=== PATIENT | male | born 1950 | race Caucasian/White ===

== ENCOUNTER → 2017-12-31 | Outpatient (CLI) | payer MEDICARE ==
[2017-12-31 18:48] LABS: BASO % 0.2 % (0.0-1.0); EOS % 0.4 % (0.0-3.0); HEMATOCRIT 42.5 % (42.0-52.0); HEMOGLOBIN 13.7 g/dl (13.5-17.5); IMMATURE GRANULOCYTE % 0.4 % (0-3.0); LYMPH # 1.2 10^3/uL (1.5-4.5); LYMPH % 12.3 % (24.0-44.0); MEAN CORPUSCULAR HEMOGLOBIN 29.6 pg (27.0-33.0); MEAN CORPUSCULAR HGB CONC 32.2 g/dl (32.0-36.5); MEAN CORPUSCULAR VOLUME 91.8 fl (80.0-96.0); MONO # 0.4 10^3/uL (0.0-0.8); MONO % 3.7 % (0.0-5.0); NEUTROPHILS # 8.3 10^3/uL (1.8-7.7); PLATELET COUNT, AUTOMATED 236 10^3/uL (150-450); RED BLOOD COUNT 4.63 10^6/uL (4.30-6.10); RED CELL DISTRIBUTION WIDTH 13.2 % (11.5-14.5)
[2017-12-31 19:01] LABS: ALBUMIN 3.7 GM/DL (3.2-5.2); ALBUMIN/GLOBULIN RATIO 1.37 (1.00-1.93); ALKALINE PHOSPHATASE 121 U/L (45-117); ALT/SGPT 45 U/L (12-78); ANION GAP 9 MEQ/L (8-16); AST/SGOT 32 U/L (7-37); BLOOD UREA NITROGEN 20 MG/DL (7-18); CALCIUM LEVEL 7.9 MG/DL (8.8-10.2); CARBON DIOXIDE LEVEL 28 MEQ/L (21-32); CHLORIDE LEVEL 104 MEQ/L (98-107); CHOLESTEROL LEVEL 113 MG/DL (<200); CHOLESTEROL RISK RATIO 2.756 (<5); CREATININE FOR GFR 1.05 MG/DL (0.70-1.30); GLOMERULAR FILTRATION RATE > 60.0 (>49); GLUCOSE, FASTING 102 MG/DL (70-100); HDL CHOLESTEROL 41 MG/DL (>40); LDL CHOLESTEROL 52.4 MG/DL (<100); NON-HDL-C 72 MG/DL; POTASSIUM SERUM 4.2 MEQ/L (3.5-5.1); SODIUM LEVEL 141 MEQ/L (136-145); TOTAL PROTEIN 6.4 GM/DL (6.4-8.2); TRIGLYCERIDES LEVEL 98 MG/DL (<150)
[2017-12-31 19:07] LABS: ESTIMATED AVERAGE GLUCOSE 134 MG/DL (60-110); HEMOGLOBIN A1c 6.3 %
[2018-01-01 12:45] LABS: TOTAL 25(OH) VITAMIN D 27.7 NG/ML (30.0-100.0)
[2018-01-05 13:34] LABS: PSA TOTAL 0.7 ng/mL (Not Estab.)
== END ==
LOC: M LRY 09:21
DX: I10 Essential (primary) hypertension (principal); Z12.5 Encounter for screening for malignant neoplasm of prostate; E55.9 Vitamin D deficiency, unspecified; R73.01 Impaired fasting glucose; E78.4 Other hyperlipidemia; Z68.32 Body mass index [BMI] 32.0-32.9, adult
CPT/HCPCS: 80053

== ENCOUNTER → 2019-05-20 | Outpatient (CLI) | payer MEDICARE ==
--- NOTE | 2019-05-20 11:11 | REP ---
Clinical: Follow up abnormal lung findings. Technique: Axial noncontrast images from the thoracic inlet to the upper abdomen with coronal and sagittal re-formations. Comparison: 12/14/2018. Findings: Subtle small calcified and non-calcified pleural plaquing primarily along the anterolateral right upper lobe remains stable along with stable 5 mm noncalcified subpleural nodule along the lateral right middle lobe.. The bilateral lung patton are otherwise well aerated, relatively symmetric and clear. No further consolidation, nodule or mass. No effusion. No pneumothorax. Tracheobronchial tree is patent. No adenopathy. The mediastinum is stable and again demonstrates moderate atherosclerotic changes to the thoracic aorta and coronary arteries. No aortic aneurysm. No cardiomegaly. No pericardial effusion. Limited upper abdomen demonstrates normal bilateral adrenal glands. Surrounding osseous structures are intact. Impression: 1. Stable subtle noncalcified pleural plaque and subpleural right middle lobe nodule. Consider 12-month follow-up examination to confirm stability/chronicity. 2. No further acute mediastinal or pleuroparenchymal process appreciated. Electronically Signed by Isidoro Scott MD 05/20/2019 11:02 A
== END ==
LOC: M RAD 09:17
PROVIDERS: ATTEND Internal Medicine Pulmonary Disease
DX: R91.8 Other nonspecific abnormal finding of lung field (principal)

== ENCOUNTER → 2019-05-23 | Outpatient (REF) | payer MEDICARE | LOC: M LAB REF 15:09 | PROVIDERS: ATTEND Surgery | DX: D21.11 Benign neoplasm of connective and other soft tissue of right upper limb, including shoulder (principal) ==

== ENCOUNTER → 2019-05-28 | Outpatient (REF) | payer MEDICARE ==
[2019-05-28 13:34] LABS: BASO # 0.1 10^3/uL (0.0-0.2); BASO % 0.7 % (0.0-1.0); EOS # 0.2 10^3/uL (0.0-0.5); EOS % 2.8 % (0.0-3.0); HEMATOCRIT 42.9 % (42.0-52.0); HEMOGLOBIN 13.9 g/dl (13.5-17.5); LYMPH # 1.4 10^3/uL (1.5-5.0); LYMPH % 20.1 % (24.0-44.0); MEAN CORPUSCULAR HEMOGLOBIN 30.2 pg (27.0-33.0); MEAN CORPUSCULAR HGB CONC 32.4 g/dl (32.0-36.5); MEAN CORPUSCULAR VOLUME 93.1 fl (80.0-96.0); MONO # 0.8 10^3/uL (0.0-0.8); MONO % 10.8 % (0.0-5.0); NEUTROPHILS # 4.6 10^3/uL (1.5-8.5); NEUTROPHILS % 65.3 % (36.0-66.0); PLATELET COUNT, AUTOMATED 235 10^3/uL (150-450); RED BLOOD COUNT 4.61 10^6/uL (4.30-6.10); WHITE BLOOD COUNT 7.1 10^3/uL (4.0-10.0)
[2019-05-28 13:41] LABS: ALT/SGPT 30 U/L (12-78); BILIRUBIN,TOTAL 0.7 MG/DL (0.2-1.0); BLOOD UREA NITROGEN 20 MG/DL (7-18); CALCIUM LEVEL 8.9 MG/DL (8.8-10.2); CARBON DIOXIDE LEVEL 30 MEQ/L (21-32); CHLORIDE LEVEL 108 MEQ/L (98-107); CREATININE FOR GFR 0.95 MG/DL (0.70-1.30); GLOMERULAR FILTRATION RATE > 60.0 (>49); GLUCOSE, FASTING 98 MG/DL (70-100); POTASSIUM SERUM 3.9 MEQ/L (3.5-5.1); SODIUM LEVEL 143 MEQ/L (136-145); TOTAL PROTEIN 6.5 GM/DL (6.4-8.2)
[2019-05-28 13:49] LABS: VITAMIN B12 LEVEL > 2000 PG/ML
[2019-05-28 14:41] LABS: ERYTHROCYTE SEDIMENTATION RATE 7 mm/hr (0-20)
[2019-05-29 14:42] LABS: ANTINUCLEAR ANTIBODIES DIRECT Negative (Negative)
== END ==
LOC: M LABNEURO 13:07
PROVIDERS: ATTEND Psychiatry & Neurology Neurology
DX: R41.3 Other amnesia (principal); D51.8 Other vitamin B12 deficiency anemias

== ENCOUNTER → 2020-03-31 | Outpatient (REF) | payer MEDICARE, OTHER ==
[2020-03-31 16:53] LABS: APPEARANCE, URINE CLEAR (CLEAR); BACTERIA, URINE AUTO NEGATIVE (NEGATIVE); BILIRUBIN, URINE AUTO NEGATIVE (NEGATIVE); BLOOD, URINE BLOOD NEGATIVE (NEGATIVE); COLOR, URINE YELLOW (YELLOW); GLUCOSE, URINE (UA) AUTO NEGATIVE (NEGATIVE); KETONE, URINE AUTO NEGATIVE (NEGATIVE); LEUKOCYTE ESTERASE, URINE AUTO NEGATIVE (NEGATIVE); NITRITE, URINE AUTO NEGATIVE (NEGATIVE); PROTEIN, URINE AUTO NEGATIVE (NEGATIVE); RBC, URINE AUTO 0 /HPF (0-3); SPECIFIC GRAVITY URINE AUTO 1.012 (1.002-1.035); SQUAMOUS EPITHELIAL CELL UR AU 0 /HPF (0-6); UROBILINOGEN, URINE AUTO 0.2 mg/dL (0.0-2.0); WBC, URINE AUTO 0 /HPF (0-3)
[2020-03-31 17:09] LABS: BASO % 0.6 % (0.0-1.0); EOS # 0.1 10^3/uL (0.0-0.5); EOS % 1.6 % (0.0-3.0); HEMATOCRIT 42.2 % (42.0-52.0); HEMOGLOBIN 13.5 g/dl (13.5-17.5); LYMPH # 1.3 10^3/uL (1.5-5.0); LYMPH % 18.5 % (24.0-44.0); MEAN CORPUSCULAR HEMOGLOBIN 29.7 pg (27.0-33.0); MEAN CORPUSCULAR VOLUME 92.7 fl (80.0-96.0); MONO # 0.7 10^3/uL (0.0-0.8); MONO % 9.3 % (0.0-5.0); NEUTROPHILS # 4.9 10^3/uL (1.5-8.5); NEUTROPHILS % 69.6 % (36.0-66.0); PLATELET COUNT, AUTOMATED 205 10^3/uL (150-450); RED BLOOD COUNT 4.55 10^6/uL (4.30-6.10)
[2020-03-31 17:25] LABS: HEMOGLOBIN A1c 5.5 %
[2020-03-31 17:30] LABS: ALBUMIN 3.9 GM/DL (3.2-5.2); ALT/SGPT 28 U/L (12-78); BILIRUBIN,TOTAL 0.5 MG/DL (0.2-1.0); BLOOD UREA NITROGEN 16 MG/DL (7-18); CALCIUM LEVEL 8.6 MG/DL (8.8-10.2); CARBON DIOXIDE LEVEL 31 MEQ/L (21-32); CHLORIDE LEVEL 106 MEQ/L (98-107); CHOLESTEROL LEVEL 115 MG/DL (<200); CHOLESTEROL RISK RATIO 2.254 (<5); CREATININE FOR GFR 0.86 MG/DL (0.70-1.30); FREE T4 0.92 NG/DL (0.76-1.46); GLOMERULAR FILTRATION RATE > 60.0 (>49); GLUCOSE, FASTING 96 MG/DL (70-100); HDL CHOLESTEROL 51 MG/DL (>40); LDL CHOLESTEROL 51 MG/DL (<100); NON-HDL-C 64 MG/DL; POTASSIUM SERUM 4.4 MEQ/L (3.5-5.1); SODIUM LEVEL 141 MEQ/L (136-145); TOTAL PROTEIN 6.1 GM/DL (6.4-8.2); TRIGLYCERIDES LEVEL 64 MG/DL (<150)
[2020-03-31 17:32] LABS: TOTAL 25(OH) VITAMIN D 49.1 NG/ML (30.0-100.0)
== END ==
LOC: M LAB REF 16:17
PROVIDERS: ATTEND Nurse Practitioner Family
DX: Z00.01 Encounter for general adult medical examination with abnormal findings (principal); Z12.5 Encounter for screening for malignant neoplasm of prostate; N50.89 Other specified disorders of the male genital organs; R41.3 Other amnesia; E78.5 Hyperlipidemia, unspecified; I10 Essential (primary) hypertension; Z79.899 Other long term (current) drug therapy
CPT/HCPCS: 80053; 80061; 81001; 82306; 83036; 84439; 84443; 85025; 87086; G0103

== ENCOUNTER → 2020-04-29 | Outpatient (REF) | payer MEDICARE ==
[2020-04-29 17:40] LABS: APPEARANCE, URINE CLEAR (CLEAR); BACTERIA, URINE AUTO NEGATIVE (NEGATIVE); BILIRUBIN, URINE AUTO NEGATIVE (NEGATIVE); BLOOD, URINE BLOOD NEGATIVE (NEGATIVE); COLOR, URINE YELLOW (YELLOW); GLUCOSE, URINE (UA) AUTO NEGATIVE (NEGATIVE); KETONE, URINE AUTO NEGATIVE (NEGATIVE); LEUKOCYTE ESTERASE, URINE AUTO NEGATIVE (NEGATIVE); MUCUS, URINE SMALL (NEGATIVE); NITRITE, URINE AUTO NEGATIVE (NEGATIVE); PROTEIN, URINE AUTO NEGATIVE (NEGATIVE); RBC, URINE AUTO 1 /HPF (0-3); SPECIFIC GRAVITY URINE AUTO 1.025 (1.002-1.035); SQUAMOUS EPITHELIAL CELL UR AU 0 /HPF (0-6); UROBILINOGEN, URINE AUTO 0.2 mg/dL (0.0-2.0); WBC, URINE AUTO 0 /HPF (0-3)
== END ==
LOC: M SMT 16:41
PROVIDERS: ATTEND Urology
DX: N45.1 Epididymitis (principal)

== ENCOUNTER → 2020-05-06 | Outpatient (CLI) | payer MEDICARE ==
--- NOTE | 2020-05-06 15:37 | REP ---
INDICATION: EDIDIDYMITIS. COMPARISON: None FINDINGS: The right testicle measures 4.1 x 2.1 x 3.4 cm and the left testicle measures 4.8 x 2.2 x 3.7 cm. There are no solid testicular masses. The testicular vascular pattern is within normal limits bilaterally. The right testicular RI is 0.59 and the left is 0.60. In the right epididymal region there are multiple anechoic or nearly anechoic structures the 2 largest measure 3.5 x 3.4 x 2.5 cm and 3.5 x 2.1 x 2.4 cm. The left epididymis there are 2 anechoic structures 1 measures 1.8 x 1.1 x 1.8 cm and the other 1.8 x 1.1 x 1.4 cm. 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 IMPRESSION: Benign cystic changes as described above, however, since are no priors for comparison follow-up is recommended. There is no evidence of a solid mass or epididymal orchitis. <Electronically signed by Eleuterio Sow > 05/06/20 [id number]
== END ==
LOC: M RAD 14:26
PROVIDERS: ATTEND Urology
DX: N45.1 Epididymitis (principal)

== ENCOUNTER → 2020-05-21 | Outpatient (CLI) | payer MEDICARE ==
--- NOTE | 2020-05-21 13:25 | REP ---
INDICATION: ABN FINDINGS OF LUNG FIELD. COMPARISON: Comparison chest CT studies are from December 14, 2018 and May 20, 2019.. TECHNIQUE: Helical scanning is acquired 3 mm axial images are generated. Coronal and sagittal MPR and coronal MIP images are generated. FINDINGS: Preliminary digital manager of security radiograph is unremarkable. The thoracic aorta is somewhat tortuous and calcific. There is no evidence of pleural or pericardial effusion. No hilar or mediastinal mass or adenopathy is seen. Vascular calcifications noted along the distribution of the coronary arteries. No adrenal lesion is seen. The visualized upper abdominal structures are unremarkable. There is calcific and noncalcific pleural plaquing on the right and left unchanged. There is a pleural based stable right middle lobe nodule measuring 5 mm in diameter. There is a 2nd stable 3 mm nodule in the right middle lobe. Both of these are unchanged from the December 14, 2018 study. There is a small subpleural nodular density 3 mm in diameter in the left lower lobe also unchanged. No new pulmonary nodule or mass lesion is observed. No infiltrate is seen. Bone window settings show no bony destructive lesion. IMPRESSION: Stable calcific and noncalcific pleural plaquing. Stable pleural based nodular densities unchanged from the study done 1 year and 5 months ago. <Electronically signed by Unruly Matamoros > 05/21/20 [id number]
== END ==
LOC: M RAD 10:00
PROVIDERS: ATTEND Internal Medicine Pulmonary Disease
DX: R91.8 Other nonspecific abnormal finding of lung field (principal); I25.10 Atherosclerotic heart disease of native coronary artery without angina pectoris

== ENCOUNTER → 2020-09-18 | Outpatient (REF) | payer MEDICARE ==
[2020-09-18 13:46] LABS: ALBUMIN 4.1 GM/DL (3.2-5.2); ALT/SGPT 38 U/L (12-78); BILIRUBIN,TOTAL 0.5 MG/DL (0.2-1.0); BLOOD UREA NITROGEN 18 MG/DL (7-18); CALCIUM LEVEL 8.8 MG/DL (8.8-10.2); CARBON DIOXIDE LEVEL 34 MEQ/L (21-32); CHLORIDE LEVEL 105 MEQ/L (98-107); CHOLESTEROL LEVEL 115 MG/DL (<200); CHOLESTEROL RISK RATIO 2.674 (<5); CREATININE FOR GFR 0.86 MG/DL (0.70-1.30); GLOMERULAR FILTRATION RATE > 60.0 (>49); GLUCOSE, FASTING 92 MG/DL (70-100); HDL CHOLESTEROL 43 MG/DL (>40); LDL CHOLESTEROL 54 MG/DL (<100); NON-HDL-C 72 MG/DL; POTASSIUM SERUM 4.4 MEQ/L (3.5-5.1); SODIUM LEVEL 141 MEQ/L (136-145); TOTAL PROTEIN 6.4 GM/DL (6.4-8.2); TRIGLYCERIDES LEVEL 90 MG/DL (<150)
== END ==
LOC: M LAB REF 12:22
PROVIDERS: ATTEND Family Medicine Addiction Medicine
DX: E78.5 Hyperlipidemia, unspecified (principal)

== ENCOUNTER → 2021-01-04 | Outpatient (REF) | payer MEDICARE ==
[2021-01-04 15:43] LABS: BASO % 0.5 % (0.0-1.0); EOS # 0.2 10^3/uL (0.0-0.5); EOS % 2.3 % (0.0-3.0); HEMATOCRIT 41.2 % (42.0-52.0); HEMOGLOBIN 13.1 g/dl (13.5-17.5); LYMPH # 1.2 10^3/uL (1.5-5.0); LYMPH % 16.2 % (24.0-44.0); MEAN CORPUSCULAR HEMOGLOBIN 29.4 pg (27.0-33.0); MEAN CORPUSCULAR HGB CONC 31.8 g/dl (32.0-36.5); MEAN CORPUSCULAR VOLUME 92.6 fl (80.0-96.0); MONO # 0.8 10^3/uL (0.0-0.8); MONO % 10.5 % (2.0-8.0); NEUTROPHILS # 5.2 10^3/uL (1.5-8.5); NEUTROPHILS % 70.1 % (36.0-66.0); PLATELET COUNT, AUTOMATED 208 10^3/uL (150-450); RED BLOOD COUNT 4.45 10^6/uL (4.30-6.10); WHITE BLOOD COUNT 7.4 10^3/uL (4.0-10.0)
[2021-01-04 16:01] LABS: HEMOGLOBIN A1c 5.6 %
[2021-01-04 16:18] LABS: ALBUMIN 3.6 GM/DL (3.2-5.2); ALT/SGPT 46 U/L (12-78); BILIRUBIN,TOTAL 0.3 MG/DL (0.2-1.0); BLOOD UREA NITROGEN 19 MG/DL (7-18); CALCIUM LEVEL 8.5 MG/DL (8.8-10.2); CARBON DIOXIDE LEVEL 29 MEQ/L (21-32); CHLORIDE LEVEL 108 MEQ/L (98-107); CHOLESTEROL LEVEL 112 MG/DL (<200); CREATININE FOR GFR 0.88 MG/DL (0.70-1.30); FREE T4 0.97 NG/DL (0.76-1.46); GLOMERULAR FILTRATION RATE > 60.0 (>49); GLUCOSE, FASTING 101 MG/DL (70-100); HDL CHOLESTEROL 50 MG/DL (>40); LDL CHOLESTEROL 46 MG/DL (<100); NON-HDL-C 62 MG/DL; POTASSIUM SERUM 4.8 MEQ/L (3.5-5.1); SODIUM LEVEL 143 MEQ/L (136-145); TRIGLYCERIDES LEVEL 80 MG/DL (<150)
== END ==
LOC: M LAB REF 15:10
PROVIDERS: ATTEND Nurse Practitioner Family
DX: E66.3 Overweight (principal); I10 Essential (primary) hypertension; Z79.899 Other long term (current) drug therapy

== ENCOUNTER → 2021-06-02 | Outpatient (CLI) | payer MEDICARE ==
--- NOTE | 2021-06-02 11:07 | REP ---
INDICATION: ABN FINDING OF LUNG COMPARISON: Multiple the latest 05/21/2020 also without contrast TECHNIQUE: Standard helical technique without intravenous contrast FINDINGS: The mediastinum and pulmonary makayla are stable. There is no mass or adenopathy. There are no pleural or pericardial effusions. There is no change in appearance of the imaged upper abdomen or imaged osseous structures. Evaluation of the lung patton shows biapical pleuroparenchymal scarring status quo. There are multiple stable pulmonary nodules some pleural based. There are no new or enlarging nodules. IMPRESSION: Stable CT examination of the chest. Follow-up as per the revised Fleischner society criteria. <Electronically signed by Eleuterio Sow > 06/02/21 [id number]
== END ==
LOC: M RAD 08:46
PROVIDERS: ATTEND Internal Medicine Pulmonary Disease
DX: R91.8 Other nonspecific abnormal finding of lung field (principal)

== ENCOUNTER → 2022-01-03 | Outpatient (CLI) | payer MEDICARE | LOC: M RAD 10:16 | PROVIDERS: ATTEND Nurse Practitioner Family | DX: N43.41 Spermatocele of epididymis, single (principal); N50.3 Cyst of epididymis; N44.2 Benign cyst of testis ==

== ENCOUNTER → 2022-05-31 | Outpatient (CLI) | payer MEDICARE | LOC: M WUC 09:01 | PROVIDERS: ATTEND Nurse Practitioner Family | DX: R07.9 Chest pain, unspecified (principal) ==

== ENCOUNTER → 2022-06-28 | Outpatient (REF) | payer MEDICARE ==
[2022-06-28 13:34] LABS: BASO % 0.5 % (0.0-1.0); EOS # 0.1 10^3/uL (0.0-0.5); EOS % 1.3 % (0.0-3.0); HEMATOCRIT 45.2 % (42.0-52.0); HEMOGLOBIN 14.5 g/dl (13.5-17.5); LYMPH # 1.6 10^3/uL (1.5-5.0); LYMPH % 20.8 % (24.0-44.0); MEAN CORPUSCULAR HEMOGLOBIN 29.5 pg (27.0-33.0); MEAN CORPUSCULAR HGB CONC 32.1 g/dl (32.0-36.5); MEAN CORPUSCULAR VOLUME 92.1 fl (80.0-96.0); MONO # 0.8 10^3/uL (0.0-0.8); MONO % 10.9 % (2.0-8.0); NEUTROPHILS # 4.9 10^3/uL (1.5-8.5); NEUTROPHILS % 66.1 % (36.0-66.0); PLATELET COUNT, AUTOMATED 230 10^3/uL (150-450); RED BLOOD COUNT 4.91 10^6/uL (4.30-6.10); WHITE BLOOD COUNT 7.5 10^3/uL (4.0-10.0)
[2022-06-28 14:10] LABS: THYROID STIMULATING HORMONE 2.368 uIU/ML (0.55-4.78)
[2022-06-28 14:11] LABS: ALKALINE PHOSPHATASE 87 U/L (46-116); ALT/SGPT 57 U/L (7.0-40); AST/SGOT 29 U/L (<34); BILIRUBIN,TOTAL 0.6 MG/DL (0.3-1.2); BLOOD UREA NITROGEN 24 MG/DL (9-23); CALCIUM LEVEL 8.8 MG/DL (8.3-10.6); CARBON DIOXIDE LEVEL 28 MMOL/L (20-31); CHLORIDE LEVEL 103 MMOL/L (98-107); CHOLESTEROL LEVEL 137 MG/DL (<200); CHOLESTEROL RISK RATIO 3.88 (<5); CREATININE FOR GFR 1.02 MG/DL (0.70-1.30); GLOMERULAR FILTRATION RATE > 60.0 (>42); GLUCOSE, FASTING 104 MG/DL (74-106); HDL CHOLESTEROL 35.3 MG/DL (>40); LDL CHOLESTEROL 80.3 MG/DL (<100); NON-HDL-C 102 MG/DL; POTASSIUM SERUM 4.6 MMOL/L (3.5-5.1); SODIUM LEVEL 141 MMOL/L (136-145); TOTAL PROTEIN 6.2 G/DL (5.7-8.2); TRIGLYCERIDES LEVEL 107 MG/DL (<150)
[2022-06-28 14:36] LABS: HEMOGLOBIN A1c 5.6 % (4.0-6.0)
== END ==
LOC: M LAB REF 12:27
PROVIDERS: ATTEND Nurse Practitioner Family
DX: Z13.228 Encounter for screening for other metabolic disorders (principal)

== ENCOUNTER → 2022-09-26 | Outpatient (REF) | payer MEDICARE ==
[2022-09-26 13:40] LABS: CHOLESTEROL RISK RATIO 3.04 (<5); HDL CHOLESTEROL 37.5 MG/DL (>40); LDL CHOLESTEROL 56.9 MG/DL (<100); NON-HDL-C 76.5 MG/DL
== END ==
LOC: M LAB REF 12:07
PROVIDERS: ATTEND Nurse Practitioner Family
DX: E78.5 Hyperlipidemia, unspecified (principal)

== ENCOUNTER 2022-10-21 08:14 | Emergency (ER) | payer MEDICARE ==
[~2022-10-21] VITALS: Ht 177.8 cm; Wt 95.4 kg
[2022-10-21 11:32] LABS: BASO % 0.5 % (0.0-1.0); EOS # 0.1 10^3/uL (0.0-0.5); EOS % 0.8 % (0.0-3.0); HEMATOCRIT 43.8 % (42.0-52.0); LYMPH # 1.4 10^3/uL (1.5-5.0); LYMPH % 16.2 % (24.0-44.0); MEAN CORPUSCULAR HEMOGLOBIN 28.9 pg (27.0-33.0); MEAN CORPUSCULAR VOLUME 90.5 fl (80.0-96.0); MONO # 0.8 10^3/uL (0.0-0.8); MONO % 9.6 % (2.0-8.0); NEUTROPHILS # 6.2 10^3/uL (1.5-8.5); NEUTROPHILS % 72.5 % (36.0-66.0); PLATELET COUNT, AUTOMATED 209 10^3/uL (150-450); RED BLOOD COUNT 4.84 10^6/uL (4.30-6.10); WHITE BLOOD COUNT 8.5 10^3/uL (4.0-10.0)
[2022-10-21 11:48] LABS: INR 0.98; PROTHROMBIN TIME 13.2 SECONDS (12.5-14.5)
[2022-10-21 11:49] LABS: PARTIAL THROMBOPLASTIN TIME 24.7 SECONDS (24.8-34.2)
[2022-10-21 11:57] LABS: ALBUMIN 3.9 G/DL (3.2-5.2); ALKALINE PHOSPHATASE 71 U/L (46-116); ALT/SGPT 38 U/L (7.0-40); AST/SGOT 27 U/L (<34); BILIRUBIN,TOTAL 0.7 MG/DL (0.3-1.2); BLOOD UREA NITROGEN 17 MG/DL (9-23); CALCIUM LEVEL 8.5 MG/DL (8.3-10.6); CARBON DIOXIDE LEVEL 29 MMOL/L (20-31); CHLORIDE LEVEL 108 MMOL/L (98-107); CK-MB VALUE MASS 5.2 NG/ML (<3.6); CPK CREATINE PHOSPHOKINASE 285 U/L (46-171); CREATININE FOR GFR 0.96 MG/DL (0.70-1.30); GLOMERULAR FILTRATION RATE > 60.0 (>42); GLUCOSE, FASTING 110 MG/DL (74-106); MAGNESIUM LEVEL 2.3 MG/DL (1.8-2.4); MB/CK RELATIVE INDEX 1.82 (< OR =4); POTASSIUM SERUM 4.5 MMOL/L (3.5-5.1); SODIUM LEVEL 138 MMOL/L (136-145); TOTAL PROTEIN 5.9 G/DL (5.7-8.2)
[2022-10-21 13:15] LABS: MB/CK RELATIVE INDEX 2.22 (< OR =4)
[2022-10-21 14:00] VITALS: BP 152/70
== END 2022-10-21 14:02 | disposition home or self-care (01) ==
LOC: M ED 08:14
DX: S00.31XA Abrasion of nose, initial encounter (principal); W01.0XXA Fall on same level from slipping, tripping and stumbling without subsequent striking against object, initial encounter; R00.1 Bradycardia, unspecified; F03.90 Unspecified dementia, unspecified severity, without behavioral disturbance, psychotic disturbance, mood disturbance, and anxiety; I10 Essential (primary) hypertension; E78.5 Hyperlipidemia, unspecified

== ENCOUNTER → 2023-07-06 | Outpatient (REF) | payer MEDICARE ==
[2023-07-06 13:01] LABS: BASO % 0.6 % (0.0-1.0); EOS # 0.1 10^3/uL (0.0-0.5); HEMATOCRIT 42.3 % (42.0-52.0); HEMOGLOBIN 13.9 g/dl (13.5-17.5); LYMPH # 1.6 10^3/uL (1.5-5.0); LYMPH % 22.4 % (24.0-44.0); MEAN CORPUSCULAR HEMOGLOBIN 29.8 pg (27.0-33.0); MEAN CORPUSCULAR HGB CONC 32.9 g/dl (32.0-36.5); MEAN CORPUSCULAR VOLUME 90.8 fl (80.0-96.0); MONO # 0.8 10^3/uL (0.0-0.8); MONO % 11.5 % (2.0-8.0); NEUTROPHILS # 4.5 10^3/uL (1.5-8.5); NEUTROPHILS % 63.4 % (36.0-66.0); PLATELET COUNT, AUTOMATED 231 10^3/uL (150-450); RED BLOOD COUNT 4.66 10^6/uL (4.30-6.10); WHITE BLOOD COUNT 7.1 10^3/uL (4.0-10.0)
[2023-07-06 13:17] LABS: HEMOGLOBIN A1c 5.7 % (4.0-6.0)
[2023-07-06 13:26] LABS: ALBUMIN 3.8 G/DL (3.2-5.2); ALKALINE PHOSPHATASE 78 U/L (46-116); ALT/SGPT 35 U/L (7.0-40); AST/SGOT 23 U/L (<34); BILIRUBIN,TOTAL 0.6 MG/DL (0.3-1.2); BLOOD UREA NITROGEN 15 MG/DL (9-23); CALCIUM LEVEL 8.9 MG/DL (8.3-10.6); CARBON DIOXIDE LEVEL 31 MMOL/L (20-31); CHLORIDE LEVEL 105 MMOL/L (98-107); CHOLESTEROL LEVEL 115 MG/DL (<200); CHOLESTEROL RISK RATIO 3.15 (<5); CREATININE FOR GFR 0.98 MG/DL (0.70-1.30); GLOMERULAR FILTRATION RATE > 60.0 (>42); GLUCOSE, FASTING 99 MG/DL (74-106); HDL CHOLESTEROL 36.4 MG/DL (>40); MAGNESIUM LEVEL 2.1 MG/DL (1.8-2.4); NON-HDL-C 78.6 MG/DL; POTASSIUM SERUM 4.2 MMOL/L (3.5-5.1); SODIUM LEVEL 141 MMOL/L (136-145); TRIGLYCERIDES LEVEL 148 MG/DL (<150)
[2023-07-06 13:27] LABS: THYROID STIMULATING HORMONE 3.354 uIU/ML (0.55-4.78)
== END ==
LOC: M LAB REF 12:30
PROVIDERS: ATTEND Nurse Practitioner Family
DX: Z13.228 Encounter for screening for other metabolic disorders (principal); Z79.899 Other long term (current) drug therapy

== ENCOUNTER → 2024-02-20 | Outpatient (CLI) | payer OTHER, MEDICARE | LOC: M RAD 14:52 | PROVIDERS: ATTEND Physician Assistant Medical | DX: N50.812 Left testicular pain (principal) ==

== ENCOUNTER → 2024-07-29 | Outpatient (REF) | payer OTHER, MEDICARE ==
[2024-07-29 18:29] LABS: BASO # 0.1 10^3/uL (0.0-0.2); BASO % 0.7 % (0.0-1.0); EOS # 0.1 10^3/uL (0.0-0.5); EOS % 1.8 % (0.0-3.0); HEMATOCRIT 42.8 % (42.0-52.0); HEMOGLOBIN 14.2 g/dl (13.5-17.5); LYMPH # 1.4 10^3/uL (1.5-5.0); MEAN CORPUSCULAR HEMOGLOBIN 30.5 pg (27.0-33.0); MEAN CORPUSCULAR HGB CONC 33.2 g/dl (32.0-36.5); MEAN CORPUSCULAR VOLUME 91.8 fl (80.0-96.0); MONO # 0.8 10^3/uL (0.0-0.8); MONO % 10.6 % (2.0-8.0); NEUTROPHILS % 67.8 % (36.0-66.0); PLATELET COUNT, AUTOMATED 253 10^3/uL (150-450); RED BLOOD COUNT 4.66 10^6/uL (4.30-6.10); WHITE BLOOD COUNT 7.4 10^3/uL (4.0-10.0)
[2024-07-29 19:00] LABS: HEMOGLOBIN A1c 5.6 % (4.0-6.0)
[2024-07-29 19:34] LABS: ALKALINE PHOSPHATASE 78 U/L (40-129); ALT/SGPT 30 U/L (7.0-40); AST/SGOT 27 U/L (<34); BILIRUBIN,TOTAL 0.7 MG/DL (0.3-1.2); BLOOD UREA NITROGEN 15 MG/DL (9-23); CALCIUM LEVEL 8.9 MG/DL (8.3-10.6); CARBON DIOXIDE LEVEL 29 MMOL/L (20-31); CHLORIDE LEVEL 107 MMOL/L (98-107); CHOLESTEROL LEVEL 118 MG/DL (<200); CHOLESTEROL RISK RATIO 2.85 (<5); CREATININE FOR GFR 0.98 MG/DL (0.70-1.30); GLOMERULAR FILTRATION RATE > 60.0 (>42); GLUCOSE, FASTING 99 MG/DL (74-106); HDL CHOLESTEROL 41.4 MG/DL (>40); LDL CHOLESTEROL 48.8 MG/DL (<100); MAGNESIUM LEVEL 2.3 MG/DL (1.8-2.4); NON-HDL-C 76.6 MG/DL; POTASSIUM SERUM 4.5 MMOL/L (3.5-5.1); SODIUM LEVEL 145 MMOL/L (136-145); TOTAL PROTEIN 6.3 G/DL (5.7-8.2); TRIGLYCERIDES LEVEL 139 MG/DL (<150)
[2024-07-29 19:35] LABS: THYROID STIMULATING HORMONE 2.272 uIU/ML (0.55-4.78)
[2024-07-29 19:40] LABS: TOTAL 25(OH) VITAMIN D 38.9 NG/ML (20.0-100.0)
== END ==
LOC: M LAB REF 16:28
PROVIDERS: ATTEND Nurse Practitioner Family
DX: E66.3 Overweight (principal); E55.9 Vitamin D deficiency, unspecified; E07.9 Disorder of thyroid, unspecified

== ENCOUNTER → 2024-12-10 | Outpatient (CLI) | payer MEDICARE | LOC: M EKG 09:00 | PROVIDERS: ATTEND Registered Nurse | DX: I48.0 Paroxysmal atrial fibrillation (principal); R00.1 Bradycardia, unspecified ==

== ENCOUNTER → 2025-01-14 | Outpatient (CLI) | payer MEDICARE | LOC: M RAD 10:07 | PROVIDERS: ATTEND Nurse Practitioner Family | DX: Z13.6 Encounter for screening for cardiovascular disorders (principal); I71.40 Abdominal aortic aneurysm, without rupture, unspecified ==

== ENCOUNTER → 2025-02-18 | Outpatient (CLI) | payer MEDICARE | LOC: M PLAIMG 07:33 | PROVIDERS: ATTEND Registered Nurse | DX: R94.31 Abnormal electrocardiogram [ECG] [EKG] (principal); I49.3 Ventricular premature depolarization; I08.3 Combined rheumatic disorders of mitral, aortic and tricuspid valves ==

== ENCOUNTER → 2025-04-02 | Outpatient (CLI) | payer MEDICARE | LOC: M PLAIMG 09:12 | PROVIDERS: ATTEND Nurse Practitioner Family | DX: M79.672 Pain in left foot (principal) ==